=== PATIENT | male | born 1990 | race Caucasian/White ===

== ENCOUNTER 2022-02-01 14:33 | Emergency (ER) | payer OTHER, SELFPAY ==
--- NOTE | ~2022-02-01 | XR_ITS ---
EXAM: XR hand LT min 3V DATE: 02/01/2022 15:45 HISTORY: lac/amputation . COMPARISON: None available. FINDINGS: Normal mineralization. Distracted oblique fracture/amputation at the junction of the dista l and middle third of the left second distal phalange. No lytic or blastic lesion. Joint spaces are m aintained. No erosion or periosteal change. Complete or near-complete laceration to the tip of the le ft index finger overlying the distal phalange fracture/amputation site and likely involving the proxi mal fingernail. No definite radiopaque foreign body. IMPRESSION: Distracted fracture/amputation of the left second distal phalange. Reviewed, dictated and finalized at location [facility].
[2022-02-01 14:36] VITALS: BP 146/80; PULSE 98; RESP 20; TEMP 36.9; O2SAT 99
--- NOTE | 2022-02-01 15:49 | ED.WOUNDLAC ---
HPI - Wound/Laceration General Chief Complaint: Wound/Laceration <AISHWARYA Harper Last Filed: 02/01/22 18:14> Stated Complaint: finger laceration <AISHWARYA Harper Last Filed: 02/01/22 18:14> Time Seen by Provider: 02/01/22 15:16 <AISHWARYA Harper Last Filed: 02/01/22 18:14> History of Present Illness HPI narrative: Patient is a 31-year-old [id number] male here for evaluation of a partial amputation of his left second fingertip. Patient states that he was at work when his hand got caught on a piece of equipment leading to a partial amputation of his fingertip. He came right to the ED. 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 Unsure of his last tetanus. <AISHWARYA Harper Last Filed: 02/01/22 18:14> Related Data Allergies/Adverse Reactions: Allergies Allergy/AdvReac Type Severity Reaction Status Date / Time No Known Allergies Allergy Verified 02/01/22 14:34 <AISHWARYA Harper Last Filed: 02/01/22 18:14> Review of Systems Review of Systems: Gen: Denies fevers or chills Eyes: Denies eye pain or visual change ENT: Denies congestion Respiratory: Denies shortness of breath or cough CV: Denies chest pain or palpitations GI: Denies abdominal pain nausea, emesis or diarrhea denies burning, urgency, frequency or hematuria Musculoskeletal: Denies back pain or muscle pain Neuro: Denies numbness, tingling, weakness or focal weakness Skin: Reports laceration/amputation to left second digit Except as documented, all other systems reviewed and negative <AISHWARYA Harper Last Filed: 02/01/22 18:14> Exam Narrative: APPEARANCE: Well appearing, no pain in distress, well-nourished. Head: Normocephalic and atraumatic. EYES: PERRLA/EOMI, conjunctivae clear NOSE: No nasal drainage EARS: External ear normal in appearance THROAT: Oropharynx is clear. Mucous membranes are moist. NECK: Supple. No adenopathy, no masses. RESPIRATORY: Airway patent, respirations nonlabored. Clear to auscultation bilaterally, no rales, rhonchi, wheezing. CARDIOVASCULAR: Regular rate and rhythm without murmurs, rubs, or gallops. ABDOMINAL: Normoactive bowel sounds. Soft, nontender, nondistended. No rebound tenderness or guarding. MUSCULOSKELETAL: Extremities are warm and well-perfused. Moves all extremities well. No edema. NEURO: Normal speech. No focal neurologic deficits. SKIN: patient's distal fingertip of digit 2 on the left hand is amputated at an oblique angle through the distal phalange, ulnar aspect of the distal fingertip is attached at the skin but remainder of fingertip is hanging off and dusky in appearance PSYCHIATRIC: Normal affect/mood. <Carlie Awad PA-C - Last Filed: 02/01/22 18:14> Course GUITAR TECHNICIAN/PA Physician Supervision For this patient encounter, I reviewed the GUITAR TECHNICIAN or PA documentation, treatment plan, and medical decision making; and I had [id number] time with this patient. <Ana Campbell MD - Last Filed: 02/01/22 16:45> Consultations Consultation #1: Spoke with Dr. Kwon, hand specialist at [facility], who agrees with transfer <Carlie Awad PA-C - Last Filed: 02/01/22 18:14> Date: 02/01/22 <Carlie Awad PA-C - Last Filed: 02/01/22 18:14> Time: 16:27 <Carlie Awad PA-C - Last Filed: 02/01/22 18:14> Consultation #2: Spoke with Dr. Leon, ED doctor, who accepts as ED--> ED transfer <Carlie Awad PA-C - Last Filed: 02/01/22 18:14> Date: 02/01/22 <Carlie Awad PA-C - Last Filed: 02/01/22 18:14> Time: 16:27 <Carlie Awad PA-C - Last Filed: 02/01/22 18:14> Vital Signs Vital signs: Vital Signs Temperature 98.4 F 02/01/22 14:36 Pulse Rate 98 02/01/22 14:36 Respiratory Rate 20 02/01/22 14:36 Blood Pressure 146/80 H 02/01/22 14:36 Pulse Oximetry 99 02/01/22 14:36 Oxygen Delivery Room Air 02/01/22 14:36 [place]
[2022-02-01] MEDS: TETANUS,DIPHTHERIA,AC PERTUSSIS ADULT (0.5 ML) BOOSTRIX IM (16:08)
[2022-02-01] MEDS: MORPHINE SULFATE (*CRX) 4 MG/ML INJ IV PUSH ×2 (16:57→17:36)
== END 2022-02-01 18:16 | disposition short-term general hospital (02) ==
PROVIDERS: Emergency Provider Emergency Medicine
DX: S62.631B Displaced fracture of distal phalanx of left index finger, initial encounter for open fracture (principal); Z23 Encounter for immunization; W31.9XXA Contact with unspecified machinery, initial encounter
CPT/HCPCS: 73130; 90471; 90715; 96374; 96376; 99285; J2270